=== PATIENT | male | born 2005 | race Caucasian/White ===

== ENCOUNTER 2023-03-08 09:26 | Outpatient (OUT) | payer BC, SELFPAY ==
--- NOTE | 2023-03-08 10:01 | CA_ITS ---
Patient: ANDREW AVALOS Exam Date: 03/08/2023 : 2005 Gender:M Ordering : DR. PRICILLA FAJARDO M.D. Admission #: [id number] Family : Order #: [id number] CLICK HERE TO VIEW EXAM ECHOCARDIOGRAM REPORT PROCEDURE: CA ECHO LIMITED INDICATIONS: Bicuspid aortic valve COMPARISON: None. DESCRIPTION: Limited ECHOCARDIOGRAM Real-time transthoracic echocardiography with 2D and M-mode performed. QUALITY: Technical quality was good. Limited echocardiogram per physician order. LEFT VENTRICLE: Normal chamber size. Normal left ventricular wall thickness. LV EF: Normal left ventricular ejection fraction, (55%). DIASTOLIC: ATRIAL SEPTUM: LEFT ATRIUM: Normal chamber size. RIGHT ATRIUM: Normal chamber size. RIGHT VENTRICLE: Normal chamber size. Normal systolic function. TRICUSPID VALVE: Normal mobility and thickness. MITRAL VALVE: Normal mobility and thickness. AORTIC VALVE: The aortic valve is bicuspid, Thereas type I with fusion of the left and right cusps. No evidence of aortic valve stenosis. DVI 0.5, AZUL 2.7 cm2. Mild aortic regurgitation. AORTIC ROOT: Normal diameter and appearance. Ascending aorta and aortic arch are normal in size. PULMONIC VALVE: Normal thickness and mobility. PERICARDIUM: No evidence of pericardial effusion. IVC: Collapses with inspirations. IVC is normal in size. PLEURA: CONCLUSION: 1. Normal left ventricular size and systolic function. LVEF is 55%. 2. Normal right ventricular size and systolic function. 3. Bicuspid aortic valve with mild regurgitation and no stenosis. 4. Normal size ascending aorta, aortic root, and aortic arch. 5. Only aortic valve Doppler interrogation was performed during this study. Adult Echocardiography Procedure Report Left Ventricle LVEDD (3.7 - 5.6 cm): 5.44 cm LVESD (2.2 - 4.0 cm): 3.89 cm LVIVS thickness (0.6 - 1.2 cm): 1.08 cm LVPW thickness (0.5 - 1.0 cm): 0.83 cm LVOT Max Gradient: 3.58 mm[Hg] LVOT Area (cm2): 0.95 m/s Peak Velocity (LVOT): 0.95 m/s Mean Velocity (LVOT): 0.63 m/s LVOT Diameter 2.63 cm Left Atrium Left Atrium Systolic Dimension: 3.09 cm Mitral Valve Right Ventricle Aorta AO Root Diam: 2.99 cm Ascending Ao Diam: 2.73 cm Aortic Valve AoV Area (Peak Ronny): 2.79 cm2, 2.79 cm2 AoV Area (VTI): 2.68 cm2, 2.68 cm2 Peak Velocity(Antegrade Flow): 1.84 m/s Peak Gradient(Antegrade Flow): 13.54 mm[Hg] Mean Velocity(Antegrade Flow): 1.23 m/s Mean Gradient(Antegrade Flow): 7.12 mm[Hg] Velocity Time Integral: 38.54 cm Tricuspid Valve Pulmonic Valve Right Atrium Dictated by: Rc Villarreal M.D. on 03/13/2023 at 17:24 Approved by: cR Villarreal M.D. on 03/13/2023 at 17:30
== END 2023-03-08 09:27 | disposition home or self-care (01) ==
LOC: CARD 09:30
DX: Q23.1 Congenital insufficiency of aortic valve (principal)
CPT/HCPCS: 93308

== ENCOUNTER 2023-06-17 09:35 | Outpatient (OUT) | payer BC, SELFPAY ==
--- NOTE | 2023-06-17 09:41 | XR_ITS ---
The [address] [address] Patient Name: ANDREW AVALOS MRN: [id number] date: 2005 Sex: M Assigned Patient Location: RAD Current Patient Location: RAD Accession/Order Number: [id number] Exam Date: 06/17/2023 09:45 Report Date: 06/17/2023 17:51 At the request of: NATHANAEL HINES Procedure: XR elbow LT min 3V EXAM: XR elbow LT min 3V HISTORY: Elbow Pain Left M25.522 COMPARISON: None. TECHNIQUE: 3 views of the left elbow were obtained. FINDINGS: There is no apparent acute fracture or dislocation. The joint spaces are intact. No osteochondral injury is identified. There is no evidence of a joint effusion. No abnormal soft tissue calcifications are present. XR/XR elbow LT min 3V IMPRESSION: No apparent acute fracture or dislocation. The joint spaces are intact and there is no evidence of an abnormal joint effusion. Electronically authenticated by: GABRIELA DE LOS SANTOS Date: 06/17/2023 17:51
== END 2023-06-17 09:36 | disposition home or self-care (01) ==
LOC: RAD 09:35
PROVIDERS: Visit Provider Orthopaedic Surgery
DX: M25.522 Pain in left elbow (principal)
CPT/HCPCS: 73080